=== PATIENT | male | born 1980 | race African-American/Black ===

== ENCOUNTER 2018-08-23 06:42 | Emergency (ER) | payer OTHER ==
[2018-08-23 07:13] VITALS: PULSE 105; TEMP 98.6; BMI 33.4
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
[2018-08-23] MEDS ORDERED: amLODIPine BESYLATE 5 MG TABLET (FP) PO ONE (07:45)
[2018-08-23] MEDS ORDERED: amLODIPine BESYLATE 5 MG TABLET (FP) ONE (07:47)
[2018-08-23 08:44] VITALS: BP 173/106
[2018-08-23 09:19] LABS: EOS % 0.1 % (0-4.5); HEMATOCRIT 43.6 % (35.4-49); HEMOGLOBIN 14.8 GM/dL (11.7-16.9); LYMPH % 28.4 % (8-40); MCH 29.1 pg (25.7-33.7); MCHC 33.9 g/dl (32.0-35.9); MEAN CELL VOLUME 85.9 fl (80-96); MEAN PLT VOLUME 9.5 fl (7.5-11.1); MONO % 8.9 % (3.8-10.2); NEUT % 61.6 % (42.8-82.8); PLATELET COUNT 223 K/MM3 (134-434); RBC 5.08 M/mm3 (4.00-5.60); RDW 14.8 % (11.9-15.9); WHITE BLOOD COUNT 6.7 K/mm3 (4.0-10.0)
[2018-08-23 09:41] LABS: ALBUMIN 3.8 g/dl (3.4-5.0); ALK PHOS 156 U/L (45-117); ANION GAP 9 MMOL/L (8-16); BILIRUBIN,TOTAL 0.4 mg/dL (0.2-1); BLOOD UREA NITROGEN 19 mg/dL (7-18); CALCIUM 8.4 mg/dL (8.5-10.1); CHLORIDE 110 mmol/L (98-107); CO2 24 mmol/L (21-32); CREATININE 1.4 mg/dL (0.55-1.3); GLUCOSE,RANDOM 114 mg/dL (74-106); POTASSIUM 4.3 mmol/L (3.5-5.1); SGOT/AST 23 U/L (15-37); SGPT/ALT 38 U/L (13-61); SODIUM 142 mmol/L (136-145); TOT PROT 8.2 g/dl (6.4-8.2)
[2018-08-23 09:59] LABS: INR 1.08 (0.83-1.09); PROTHROMBIN TIME (PATIENT) 12.8 SEC (9.7-13.0)
[2018-08-23 10:02] LABS: ACTIVATED PTT 30.3 SECONDS (25.2-36.5)
--- NOTE | 2018-08-23 10:20 | PDOC ---
Attending Attestation - Resident Resident Name: Jamaica Ferrara - ED Attending Attestation I have performed the following: I have examined & evaluated the patient, The case was reviewed & discussed with the resident, I agree w/resident's findings & plan, Exceptions are as noted - HPI HPI: 08/23/18 10:10 37 m with h/o HTN, HLD presenting to ED with lightheadedness. Pt states that he had an argument with his this morning and subsequently felt lightheaded. Denies syncope. Denies Cp/SOB. Pt states that he took his BP and heart rate and found both to be elevated, prompting his visit to ER. Pt states that he was previously on 2 antiHTNs but has been non-compliant for a year because he feared they would have side effects. Pt does not currently follow with any doctors. - Physicial Exam PE: 08/23/18 10:11 GENERAL: Awake, alert, and fully oriented, in no acute distress. HEAD: No signs of trauma EYES: PERRLA, EOMI, sclera anicteric, conjunctiva clear ENT: Auricles normal inspection, hearing grossly normal, nares patent, oropharynx clear without exudates. Moist mucosa NECK: Nontender, no stepoffs, Normal ROM, supple, no lymphadenopathy, JVD, or masses LUNGS: Breath sounds equal, clear to auscultation bilaterally. No wheezes, and no crackles HEART: Regular rate and rhythm, normal S1 and S2, no murmurs, rubs or gallops ABDOMEN: Soft, nontender, normoactive bowel sounds. No guarding, no rebound. No masses EXTREMITIES: Normal range of motion, no edema. No clubbing or cyanosis. No cords, erythema, or tenderness NEUROLOGICAL: Cranial nerves II through XII intact. 5/5 strength and sensation in all extremities, Normal speech, normal gait, normal cerebellar function SKIN: Warm, Dry, normal turgor, no rashes or lesions noted. - Medical Decision Making 08/23/18 10:20 37 M with HTN and lightheadedness in the context of getting in an argument. EKG with no acute ischemic changes. Pt admits noncompliance with meds. Pt noted to have unequal pressures in each arm. Pt denies CP but will r/o dissection given elevated BP. - Labs, trop - CTA chest - Home dose amlodipine 08/23/18 10:52 I had extensive conversation with patient regarding his own health maintenance. He expresses understanding that without proper BP control, he can develop severe kidney or heart disease. I also explained that because his blood pressures are unequal in each arm, we need to obtain a CT to r/o dissection, a life-threatening condition. Pt understands that if he has a dissection, he could . However, pt is hesitant to obtain CT with contrast due to fear of IV contrast. Pt to discuss with family 08/23/18 11:31 Pt refusing CTA, now wishing to go home. States that he feels fine now and does not want any further testing. The patient is clinically sober, free from distracting injury, appears to have intact insight and judgment and reason and in my opinion has the capacity to make decisions. The patient presented with elevated BP and lightheadedness with unequal blood pressures. I have explained that I am concerned that this may represent aortic dissection; they have verbalized an understanding of my concerns. I have told the patient that while their labs were normal, they could still have dissection. I have discussed the need for CTA to get more information about potential causes of the patients unequal blood pressures. I have told the patient that if they leave and have chest pain or shortness of breath, they could get much worse, could become critically ill, and could possibly become disabled or . I have discussed these concerns with the patients who is at the bedside and she is unable to convince them to stay for further evaluation. He is refusing any further care and is leaving against medical advice. I am unable to convince the patient to stay, I have asked them to return as soon as possible to complete their evaluation. I have answered all their questions.
--- NOTE | 2018-08-23 18:31 | EKG ---
Test Reason : Blood Pressure : / mmHG Vent. Rate : 080 BPM Atrial Rate : 080 BPM P-R Int : 180 ms QRS Dur : 104 ms QT Int : 376 ms P-R-T Axes : 038 087 024 degrees QTc Int : 433 ms NORMAL SINUS RHYTHM NORMAL ECG NO PREVIOUS ECGS AVAILABLE Confirmed by ANAT LING MD ([id number]) on 08/23/2018 6:31:28 PM Referred By: Confirmed By:ANAT LING MD
== END 2018-08-23 11:07 | disposition left against medical advice (07) ==
LOC: JER 06:42
DX: I10 Essential (primary) hypertension (principal); E78.5 Hyperlipidemia, unspecified; Z91.14 Patient's other noncompliance with medication regimen
CPT/HCPCS: 36415; 80053; 82550; 82553; 83735; 84484; 85025; 85610; 85730; 93005; 93010; 99282-25